=== PATIENT | female | born 1975 | race Caucasian/White ===

== ENCOUNTER → 2018-03-03 | Outpatient (CLI) | payer OTHER ==
[2014-05-12 12:25] VITALS: BMI 25.8
[~2018-03-03] MED LIST: Acetaminophen PO; Ibuprofen PO; Lanolin TP; Multivit/Min/Fol Ac/Iron/Pren PO; NO ROUTINE MEDS; ONDA4TAB PO
--- NOTE | 2018-03-04 10:00 | RADIOLOGY IMAGING REPORT ---
FACILITY: [facility] [place] PATIENT NAME: ADORE OLVERA : [id number] MR: [id number] V: [id number] EXAM DATE: [id number] ORDERING PHYSICIAN: SHANE BEDOYA TECHNOLOGIST: Ramona Mitchell PROCEDURE:BILATERAL DIGITAL SCREENING MAMMOGRAM WITH CAD ASSISTED INTERPRETATION & 3D TOMOSYNTHESIS COMPARISON:None. This is the patient's baseline mammogram. INDICATIONS:SCREENING FINDINGS: Dense heterogeneous fibroglandular tissue is seen throughout the breasts. There is no demonstration of malignant appearing mass, malignant appearing calcifications or other secondary sign of malignancy in either breast. DIAGNOSTIC CATEGORY 1--NEGATIVE. RECOMMENDATIONS: ROUTINE MAMMOGRAM AND CLINICAL EVALUATION. IMPRESSION: BIRADS 1: Negative No significant abnormality is seen. Dictated by: Araceli Avila M.D. on 03/03/2018 at 16:30 Transcribed by: CHUCK on 03/04/2018 at 8:04 Approved by: Araceli Avila M.D. on 03/04/2018 at 9:59 [facility]
== END ==
LOC: MAMO 00:57
PROVIDERS: ATTEND Nurse Practitioner Psychiatric/Mental Health
DX: Z12.31 Encounter for screening mammogram for malignant neoplasm of breast (principal)
CPT/HCPCS: 77063; 77067

== ENCOUNTER → 2018-03-07 | Outpatient (REF) ==
[2014-05-12 12:25] VITALS: BMI 25.8
--- NOTE | 2018-03-07 11:07 | RADIOLOGY IMAGING REPORT ---
FACILITY: [facility] PATIENT NAME: Rachana Wen : 1975 MR: [id number] V: [id number] EXAM DATE: ORDERING PHYSICIAN: MICHOACANO BOO TECHNOLOGIST: Location: [facility] [place] Patient: Rachana eWn : 1975 Visit/Account:[id number] Date of Sevice: 03/07/2018 Study: CHEST SINGLE AP Indication: Employment physical Comparison study: None Findings: Single PA view of the chest demonstrates the presence of scoliosis of the thoracic spine. There is no evidence of acute infiltrate. There is no evidence of pleural effusion or pneumothorax. There is no evidence of lytic or blastic bony lesion. IMPRESSION: Mild thoracic spine scoliosis. No evidence of acute abnormality. Report Dictated By: Babak Spence at 03/07/2018 11:01 AM Report E-Signed By: Babak Spence at 03/07/2018 11:02 AM WSN:[id number]
== END ==
LOC: RAD 09:38
PROVIDERS: ATTEND Physician Assistant Medical
DX: Z02.9 Encounter for administrative examinations, unspecified (principal)
CPT/HCPCS: 71045